=== PATIENT | female | born 1995 | race Asian ===

== ENCOUNTER 2018-01-15 23:50 | Emergency (ER) | payer OTHER ==
[~2018-01-15] VITALS: Ht 167.6 cm; Wt 95.9 kg
[2018-01-15 23:52] VITALS: TEMP 37.4; Ht 167.6 cm; Wt 95.9 kg
[2018-01-16] MEDS ORDERED: IBUPROFEN 600 MG TAB PO STA (00:03)
[2018-01-16] MEDS ORDERED: ACETAMINOPHEN 500 MG TAB PO STA (00:03)
[2018-01-16 01:40] VITALS: BP 129/81; PULSE 84; O2SAT 97
--- NOTE | 2018-01-16 06:33 | DIAGNOSTIC IMAGING REPORT ---
L KNEE 3 VIEWS HISTORY: 22 years-old Female Left knee pain acute left knee pain COMPARISON: None available TECHNIQUE: 3 views of the left knee FINDINGS: No acute fracture, dislocation, osteochondral defect or significant degenerative changes. No large joint effusion. IMPRESSION: No acute fracture. The above report was generated using voice recognition software. It may contain grammatical, syntax or spelling errors. Electronically signed by: Mukesh Hernandez M.D. 01/16/2018 6:32 AM Dictated Date/Time: 01/16/2018 6:31 AM
--- NOTE | 2018-01-16 07:13 | EMERGENCY ROOM VISIT NOTE ---
ED Visit Note First contact with patient: 23:56 CHIEF COMPLAINT: Left knee pain HISTORY OF PRESENT ILLNESS: This 22 year old female patient presents to the emergency department with left knee pain for the past week. The patient does not have distinct injury or trauma. She has been increasing her physical activity and working out recently, this seems to exacerbate her symptoms. Her pain occurs both with activity and at rest. She has been sleeping with her leg elevated because of the discomfort. She will intermittently but not regularly take ibuprofen for the pain. They are able to ambulate with discomfort. She rates the pain 7/10 currently. REVIEW OF SYSTEMS: A 6 system review of systems was completed with positives and pertinent negatives listed in the HPI. ALLERGIES: No known allergies MEDICATIONS: No chronic medication PMH: Otherwise healthy SOCIAL HISTORY: Lives locally PHYSICAL EXAM: Vital Signs: Reviewed Nurse's notes, vital signs stable. GENERAL : Female, no acute distress, but appears in pain, well-developed, well- nourished. MENTAL STATUS: Alert, oriented to person place and time, and cooperative. MUSCULOSKELETAL: The left knee is minimally swollen. There is no ecchymosis. There is no joint effusion present. The patient is tender medially. There is no joint line tenderness. The patella does not subluxate. Range of motion is normal. Strength of the quads and hamstrings is 5/5. Megan' s is negative. Khalida's and Anterior Drawer tests are negative. There is no laxity with varus and valgus stressing. The foot and toes are warm and well- perfused. Dorsalis pedis pulse 2+. Sensation to pain and light touch is intact. Capillary refill less than 2 seconds. L KNEE 3 VIEWS HISTORY: 22 years-old Female Left knee pain acute left knee pain COMPARISON: None available TECHNIQUE: 3 views of the left knee FINDINGS: No acute fracture, dislocation, osteochondral defect or significant degenerative changes. No large joint effusion. IMPRESSION: No acute fracture. EMERGENCY DEPARTMENT COURSE: Physical exam and history were performed. Nursing notes and EMR were reviewed. Patient appears to have left knee discomfort worsening over the past few weeks. She does not have a distinct trauma. The patient was given ibuprofen and Tylenol here in the department. X-rays were performed and did not show evidence of fracture or dislocation per my radiology interpretation. Overall the patient appears well for discharge home. She will be placed in a knee immobilizer and given crutches. The patient will need to follow with orthopedics with any ongoing or persisting symptoms. She is otherwise invited back to the ER was pleased with plan of care. Current/Historical Medications No Active Prescriptions or Reported Meds Allergies Coded Allergies: No Known Allergies (Unverified , 01/16/18) Vital Signs Date Time Temp Pulse Resp B/P (MAP) Pulse Ox O2 Delivery O2 Flow Rate FiO2 01/16/18 01:40 84 20 129/81 97 01/15/18 23:52 37.4 91 18 136/79 97 Room Air Medications Administered Medications (Trade) Dose Ordered Sig/Yaneli Route Start Time Stop Time Status Last Admin Dose Admin Acetaminophen (Tylenol Tab) 1,000 mg NOW STAT PO 01/16/18 00:03 01/16/18 00:04 DC 01/16/18 00:19 1,000 MG Ibuprofen (Motrin Tab) 600 mg NOW STAT PO 01/16/18 00:03 01/16/18 00:04 DC 01/16/18 00:19 600 MG Departure Information Impression Primary Impression: Injury of left knee Dispostion Home / Self-Care Condition GOOD Prescriptions No Active Prescriptions or Reported Meds Referrals Chavez Roberson M.D. Forms HOME CARE DOCUMENTATION FORM, IMPORTANT VISIT INFORMATION Patient Instructions My [facility] Additional Instructions You were seen and evaluated today on an emergency basis only. This is not a substitute for, or an effort to provide, complete comprehensive medical care. It is not possible to recognize and treat all injuries or illnesses in a single emergency department visit. For this reason it is recommended that you followup with [facility], Dr. Roberson's office, for ongoing care and evaluation. For baseline pain relief you may alternate ibuprofen and acetaminophen every 4 hours for pain control. Take 600 mg ibuprofen (Advil) and then 4 hours later take 1000 mg acetaminophen (Tylenol). Do not take more than 3000 mg acetaminophen in a single day. Use your knee immobilizer and crutches for the next 4-5 days.. You are welcome to return to the emergency department anytime with new, worsening, or concerning symptoms.
== END 2018-01-16 01:41 | disposition home or self-care (01) ==
LOC: C.EDB 23:52
DX: S89.92XA Unspecified injury of left lower leg, initial encounter (principal); X58.XXXA Exposure to other specified factors, initial encounter